=== PATIENT | male | born 1960 | race African-American/Black ===

== ENCOUNTER 2023-11-01 14:50 | Emergency (ER) | payer MEDICAID ==
[~2023-11-01] VITALS: Ht 180.3 cm; Wt 105.0 kg
[2023-11-01 14:57] VITALS: BP 150/87; RESP 16; TEMP 97.9; O2SAT 100
[2023-11-01 15:00] VITALS: PULSE 72
[2023-11-01] MEDS ORDERED: METH-653 MT (16:59)
[2023-11-01] MEDS ORDERED: IBUP-2029 MT (16:59)
== END 2023-11-01 16:34 | disposition home or self-care (01) ==
LOC: ER 15:01
DX: S33.5XXA Sprain of ligaments of lumbar spine, initial encounter (principal); V49.9XXA Car occupant (driver) (passenger) injured in unspecified traffic accident, initial encounter; Y93.89 Activity, other specified; Y92.89 Other specified places as the place of occurrence of the external cause; Y99.8 Other external cause status
CPT/HCPCS: 72100; 99283

== ENCOUNTER 2024-02-09 13:11 | Emergency (ER) | payer MEDICAID ==
[~2024-02-09] VITALS: Ht 180.3 cm; Wt 108.0 kg
[~2024-02-09 13:11] MED LIST: IBUP-2029 MT; METH-653 MT
[2024-02-09 13:15] VITALS: O2SAT 99
[2024-02-09] MEDS ORDERED: DIPH25CA83 MT (14:39)
[2024-02-09] MEDS ORDERED: PERM60CR4 TP (14:39)
[2024-02-09 15:04] VITALS: BP 148/72; PULSE 78; RESP 18; TEMP 97.7
== END 2024-02-09 15:06 | disposition home or self-care (01) ==
LOC: ER 14:07
DX: R21 Rash and other nonspecific skin eruption (principal); I10 Essential (primary) hypertension; Z79.899 Other long term (current) drug therapy
CPT/HCPCS: 99281